=== PATIENT | female | born 1960 | race Caucasian/White ===

== ENCOUNTER 2019-03-06 22:01 | Emergency (ER) | payer OTHER ==
[~2019-03-06] VITALS: Ht 170.2 cm; Wt 82.0 kg
[~2019-03-06 22:01] MED LIST: ONDA4TAB14 PO
[2019-03-06 22:05] VITALS: Ht 170.2 cm; Wt 82.0 kg
[2019-03-06] MEDS ORDERED: ONDANSETRON 4 MG INJ IV STA (22:11)
[2019-03-06] MEDS ORDERED: SOD CHLORIDE 0.9% 1,000 ML IV STA (22:11)
--- NOTE | 2019-03-06 22:42 | ERD ---
ER Documentation Chief Complaint Chief Complaint Syncope s/p walking in heat all day, -trauma, vomit/epigastric pain.A&ox4 HPI This is a 58-year-old female with a history of hypertension, hypothyroidism who presents to the emergency room for evaluation of near syncopal episode. The patient states that she is here on a tour and was out walking in the heat. She states that she felt like she was having some abdominal cramping, nausea, she did vomit once and almost fainted. She also endorses one episode of diarrhea prior to this occurring. The patient states that she is feeling better at this time but states that she is still feeling weak. She denies any headache, fevers, chest pain, shortness of breath or diaphoresis at this time. ROS All systems reviewed and are negative except as per history of present illness. Allergies Allergies: Uncoded Allergies: OPTALGIN (Allergy, Intermediate, "PASSED OUT", 03/06/19) AKA METAMIZOLE (MEDICINE FROM [facility]) PMhx/Soc Medical and Surgical Hx: pt denies Surgical Hx History of Surgery: No Anesthesia Reaction: No Hx Neurological Disorder: Yes (CVA 2013) Hx Respiratory Disorders: No Hx Cardiac Disorders: Yes (HTN) Hx Psychiatric Problems: No Hx Miscellaneous Medical Probl: No Hx Alcohol Use: No Hx Substance Use: No Hx Tobacco Use: No Smoking Status: Never smoker Physical Exam Vitals Vital Signs Date Temp Pulse Resp B/P (MAP) Pulse Ox O2 O2 Flow FiO2 Time Delivery Rate 03/06/19 98.0 79 12 126/66 96 Room Air 22:59 (86) 03/06/19 97.9 79 10 128/67 96 22:05 (87) Physical Exam INITIAL VITAL SIGNS: Reviewed by me GENERAL: The patient is well developed and appropriate for usual state of health in no apparent distress HEENT: Dry mucous membranes, pupils equal, round, and reactive to light. EOMI. There is no scleral icterus. NECK: C-spine is soft and supple, there is no meningismus. There is no cervical lymphadenopathy. LUNGS: Clear to auscultation bilaterally. There are no rales, wheezes or rhonchi. HEART: Regular rate and rhythm, no murmurs, clicks, rubs or gallops. ABDOMEN: Soft, non-tender, non-distended. There are bowel sounds in all four q uadrants. No rebound or guarding. EXTREMITIES: There is no peripheral cyanosis or edema. No focal swelling or erythema. NEUROLOGICAL: The patient moves all four extremities with 5/5 strength. Cran ial nerves II - XII are intact. Normal gait. Alert and oriented SKIN: There is no apparent rash or petechiae. HEME/LYMPHATIC: There is no evidence of excessive bruising or lymphedema. PSYCHIATRIC: The patient does not appear anxious or depressed. Result Diagram: 03/06/198 03/06/198 Results 24 hrs Laboratory Tests Test 03/06/19 22:18 White Blood Count 5.9 10^3/ul Red Blood Count 4.24 10^6/ul Hemoglobin 12.4 g/dl Hematocrit 36.9 % Mean Corpuscular Volume 87.0 fl Mean Corpuscular Hemoglobin 29.2 pg Mean Corpuscular Hemoglobin Concent 33.6 g/dl Red Cell Distribution Width 12.6 % Platelet Count 155 10^3/UL Mean Platelet Volume 11.1 fl Immature Granulocytes % 0.700 % Neutrophils % 72.3 % Lymphocytes % 17.3 % Monocytes % 8.7 % Eosinophils % 0.7 % Basophils % 0.3 % Nucleated Red Blood Cells % 0.0 /100WBC Immature Granulocytes # 0.040 10^3/ul Neutrophils # 4.3 10^3/ul Lymphocytes # 1.0 10^3/ul Monocytes # 0.5 10^3/ul Eosinophils # 0.0 10^3/ul Basophils # 0.0 10^3/ul Nucleated Red Blood Cells # 0.0 10^3/ul Sodium Level 137 mmol/L Potassium Level 2.8 mmol/L Chloride Level 101 mmol/L Carbon Dioxide Level 25 mmol/L Anion Gap 11 Blood Urea Nitrogen 13 mg/dl Creatinine 0.60 mg/dl Est Glomerular Filtrat Rate mL/min > 60 mL/min Glucose Level 148 mg/dl Calcium Level 9.1 mg/dl Total Bilirubin 0.9 mg/dl Direct Bilirubin 0.00 mg/dl Indirect Bilirubin 0.9 mg/dl Aspartate Amino Transf (AST/SGOT) 49 IU/L Alanine Aminotransferase (ALT/SGPT) 57 IU/L Alkaline Phosphatase 60 IU/L Troponin I < 0.012 ng/ml B-Type Natriuretic Peptide 30 PG/ML Total Protein 7.9 g/dl Albumin 4.6 g/dl Globulin 3.30 g/dl Albumin/Globulin Ratio 1.39 Ethyl Alcohol Level < 10.0 mg/dl Current Medications Medications Dose Sig/Calista Start Time Status Last (Trade) Ordered Route PRN Stop Time Admin Dose Reason Admin Sodium 1,000 ml @ Q1H STAT 03/06/19 DC 03/06/19 Chloride 1,000 mls/hr IV 22:11 03/06/19 22:16 23:10 Ondansetron 4 mg ONCE STAT 03/06/19 DC 03/06/19 HCl (Zofran IV 22:11 03/06/19 22:16 Inj) 22:13 Potassium 40 meq ONCE STAT 03/06/19 DC Chloride PO 23:06 03/06/19 (Klor-Con 20) 23:07 Procedures/MDM EKG: Rate/Rhythm: [Normal Sinus Rhythm] QRS, ST, T-waves: [No changes consistent w/ acute ischemia] Impression: [No evidence of ischemia or arrhythmia] Chest X-ray 1V Interpreted by me: Soft Tissue: No acute abnormalities Bones: No acute abnormalities Mediastinum/Cardiac Silhouette/Lungs: [No acute abnormalities] This is a 58-year-old female with a history of hypothyroidism and hyper tension presents to the emergency room for evaluation of a near syncopal episode and vomiting. On my evaluation the patient did have dry mucous membranes however she was afebrile and nontoxic-appearing and hemodynamically stable. An EKG was obtained and shows no signs of ischemia. The patient was placed on a monitor and IV line was established and she was given IV fluids. Lab work was obtained and does show hypokalemia with a potassium of 2.8. The patient was supplemented with 40 mg of potassium by mouth. She was given an additional liter of lactated Ringer's and is not tolerating p.o. fluids. Her states that this did happen to her 2 years ago when she was out walking in the sun and states that today the were out walking in the sun as well. The patient is doing better clinically and is likely suffering from near syncope secondary to mild dehydration and hypokalemia. She stable for discharge and will be discharged at this time with strict return precautions Departure Diagnosis: Primary Impression: Syncope Additional Impressions: Hypokalemia Dehydration, mild Condition: STAN Alejo DO Mar 06, 2019 22:42
[2019-03-06] MEDS ORDERED: POTASSIUM CHLORIDE (SR) 20 MEQ TAB PO STA (23:06)
[2019-03-06] MEDS ORDERED: LACTATED RINGER'S 1,000 ML IV STA (23:10)
[2019-03-06 23:59] VITALS: BP 122/75; PULSE 77; RESP 16
== END 2019-03-07 | disposition home or self-care (01) ==
LOC: EDBD 22:01 → E/R 22:01
DX: R55 Syncope and collapse (principal); I10 Essential (primary) hypertension; E03.9 Hypothyroidism, unspecified; E87.6 Hypokalemia; E86.0 Dehydration; Z86.73 Personal history of transient ischemic attack (TIA), and cerebral infarction without residual deficits
CPT/HCPCS: 71045; 80053; 80307; 83880; 84484; 85025; 93005; 96361; 96374; 99285; J2405; J7030; J7120